=== PATIENT | male | born 1965 | race Two or more races ===

== ENCOUNTER 2023-07-09 14:30 | Emergency (ER) | payer SELFPAY ==
[~2023-07-09] VITALS: Ht 165.1 cm; Wt 83.2 kg
[2023-07-09 15:06] LABS: Urine WBC None Seen /hpf (0 - 3)
[2023-07-09 15:20] LABS: Urine Bacteria NONE SEEN /hpf (None Seen); Urine Blood Negative /uL (Negative); Urine Clarity Clear (Clear); Urine Color Yellow (Yellow); Urine Protein, UAD Negative (Negative); Urine Specific Gravity 1.013 (1.001-1.035); Urine Urobilinogen Normal (Negative); Urine pH 7.5 (5.0-9.0)
[2023-07-09 15:36] VITALS: BP 157/85; PULSE 82; RESP 18; TEMP 98.9; O2SAT 97
[2023-07-09 16:01] LABS: Basophils # (auto) 0.1 10 ^3/uL (0-0.2); Basophils % (auto) 1.4 % (0.0-2.0); Eosinophils # (auto) 0.2 10 ^3/uL (0-0.8); Eosinophils % (auto) 3.3 % (0.0-7.0); Hematocrit 46.7 % (41.0-53.0); Hemoglobin 15.7 g/dL (13.5-17.5); Lymphocytes # (auto) 1.8 10 ^3/uL (0.4-5.4); Lymphocytes % (auto) 24.6 % (10.0-50.0); Mean Corpuscular Hemoglobin 30.2 pg (28.0-32.0); Mean Corpuscular Hgb Conc. 33.6 g/dL (32.0-36.0); Mean Corpuscular Volume 89.9 fL (80.0-100.0); Monocytes # (auto) 0.5 10 ^3/uL (0-1.3); Monocytes % (auto) 7.6 % (0.0-12.0); Neutrophils # (auto) 4.6 10 ^3/uL (1.6-8.6); Neutrophils % (auto) 63.1 % (37.0-80.0); Red Cell Distribution Width 13.9 % (11.8-14.3); White Blood Cell 7.2 10^3/uL (4.4-10.8)
[2023-07-09] MEDS: KETOROLAC TROMETH 30 MG/ML 1ML VIAL IM ONE (16:05)
[2023-07-09 16:18] LABS: Chloride 107 mmol/L (98-107); Sodium 137 mmol/L (136-145)
[2023-07-09 16:19] LABS: Anion Gap 4 (5-15); Carbon Dioxide 26 mmol/L (20-30)
[2023-07-09 16:20] LABS: Calcium 9.6 mg/dL (8.7-10.4)
[2023-07-09 16:24] LABS: BUN/Creatinine Ratio 12.2 (10.0-20.0); Blood Urea Nitrogen 10 mg/dL (9-23); Glucose 84 mg/dL (74-106)
[2023-07-09] MEDS ORDERED: CYCL-837 PO (16:52)
[2023-07-09] MEDS ORDERED: IBUP1TAB5 PO (16:52)
== END 2023-07-09 16:58 | disposition home or self-care (01) ==
LOC: ER 14:30
DX: S39.012A Strain of muscle, fascia and tendon of lower back, initial encounter (principal); Z79.899 Other long term (current) drug therapy; X58.XXXA Exposure to other specified factors, initial encounter; Y93.89 Activity, other specified; Y92.89 Other specified places as the place of occurrence of the external cause; Y99.8 Other external cause status
CPT/HCPCS: 36415; 80048; 81001; 85025; 96372; 99283; J1885